=== PATIENT | male | born 1965 | race Two or more races ===

== ENCOUNTER 2021-11-18 13:21 | Outpatient (AMB) | payer MEDICAID, SELFPAY ==
[2021-11-18 13:34] VITALS: BP 114/73; PULSE 65; RESP 18; TEMP 37.6; BMI 27.9
--- NOTE | 2021-11-18 13:34 | URONOTE_ITS ---
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 Accompanied by: Self / Same As Patient Is patient in pain?: No Allergy Allergies No Known Allergies Allergy (Verified 11/18/21 13:35) Home Meds Medication Reconciliation Hydrocodone/Acetaminophen * (NORCO 10/325 *) 1 tab PO Q6HR PRN #0 09/29/12 [History Confirmed 11/18/21] docusate sodium 100 mg capsule (Colace) 100 mg PO BID #0 09/29/12 [History C onfirmed 11/18/21] fenofibrate micronized 134 mg capsule (Fenofibrate) 134 mg PO DAILY #0 09/29/12 [History Confirmed 11/18/21] furosemide 20 mg tablet (Lasix) 20 mg PO QAM #0 09/29/12 [History Confirmed 11/18/21] esomeprazole magnesium 20 mg capsule,delayed release (Nexium) 20 mg PO QDAY cap 09/28/17 [History Confirmed 11/18/21] fluoxetine 20 mg capsule 20 mg PO QDAY 09/28/17 [History Confirmed 11/18/21] nortriptyline 50 mg capsule 50 mg PO QHS 09/28/17 [History Confirmed 11/18/21] potassium citrate 10 mEq (1,080 mg) tablet,extended release 10 meq PO QDAY tab 09/28/17 [History Confirmed 11/18/21] benazepril 5 mg tablet 5 mg PO QDAY 10/03/19 [History Confirmed 11/18/21] carvedilol 25 mg tablet 25 mg PO BID 10/03/19 [History Confirmed 11/18/21] levothyroxine 75 mcg capsule 75 mcg PO QDAY 10/03/19 [History Confirmed 11/18/21] warfarin 3 mg tablet 3 mg PO QDAY tab 10/03/19 [History Confirmed 11/18/21] Nurse Note: Present with Dr Styles during prostate exam. Patient given lab slip to have PSA done in one year. mvp Fall Screening Do you have a fear of falling?: No Have you had a fall in the last 2 months?: No Do you use an assistive device for ambulation?: No Current Vital Signs Height Height Method Weight Weight Measurement Method Body Mass Index Temperature Temperature Source 1.68 m Stated 78.585 kg Standing Scale 27.9 99.7 F Temporal Artery Scan 11/18/21 13:34 11/18/21 13:34 11/18/21 13:34 11/18/21 13:34 11/18/21 13:34 11/18/21 13:34 11/18/21 13:34 Pulse Rate Pulse Source Respiratory Rate Blood Pressure Blood Pressure Source Blood Pressure Location Blood Pressure Position 65 Monitor 18 114/73 Automatic Cuff Left Upper Arm Sitting 11/18/21 13:34 11/18/21 13:34 11/18/21 13:34 11/18/21 13:34 11/18/21 13:34 11/18/21 13:34 11/18/21 13:34 Nursing Documentation Social History Tobacco History Smoking Status: Never smoker Alcohol History Alcohol Intake: Former Office Procedures Uro Level of Care Nursing/Assessment/Reassessment Patient Status: Established Patient Nursing Assessment/Reassessment: Update [facility] data in EMR, Vital Signs and Medication Reconciliation Coordination of Care: Simp Pt/Fam Ed for care and Ref for ancillary service Special Needs: Language special needs Established Patient Point Assignment: 70 Established Patient Point Charge: EP Level 2 (40-75) Procedure IM Injection: No Transrectal Ultrasound: No Urology Clinic Office Visit Office Visit Date of visit:: November 18, 2021 13:21 Allergies & Home Medications: Allergies No Known Allergies Allergy (Verified 10/01/20 08:49) Visit: Reason for visit: [] Office Visit findings: []
--- NOTE | 2021-11-19 06:25 | URONOTEN_ITS ---
RE: ОЛЕГ ALCARAZ : 1965 DATE: 11/18/2021 CHIEF COMPLAINT: 1. BPH with urinary obstruction and LUTS. 2. Hypertension. 3. Coronary artery disease, status post placement of pacemaker. HISTORY OF PRESENT ILLNESS: This is a 56-year-old gentleman. The patient has BPH with urinary obstruction and LUTS. He is on tamsulosin 0.4 mg p.o. daily. Has frequency of urination x2 at night, 3 times during the day. He has no history of hematuria, dysuria, urinary tract infections. Past medical history, family history, review of systems, personal history, please refer to patient history form dated 11/18/2021. It is in HPI, in EMR. PHYSICAL EXAMINATION: General: Condition is satisfactory. Orientation x3. HEENT: Normocephalic, atraumatic. Eyes: No anemia or jaundice. Neck: Supple. Trachea is central. Thyroid is not enlarged. Extremities: Revealed no edema, cyanosis or clubbing. Vital Signs: Stable. They are in HPI, in EMR. Chest: Symmetrical. Heart: Regular rate and rhythm. Abdomen: No masses. Liver, spleen, kidney not palpable. No CVA tenderness. Rectal: Revealed perineum to be normal. External sphincter tone is normal. Prostate is moderately enlarged. No definite induration or asymmetry indicative of prostate cancer. No rectal masses. VARIOUS LABS: BUN is 9, creatinine is 1.2, GFR is 60. PSA on 11/12/2021 is 0.3. IMPRESSION: 1. Benign prostatic hypertrophy with urinary obstruction and lower urinary tract symptoms, status post microwave thermotherapy. 2. Hypertension, needs to be managed by primary care physician. 3. Coronary artery disease, needs to be managed by primary care physician. RECOMMENDATIONS: My recommendation is PSA in 1 year. Reappointment in 1 year. DT: 14:45:01 TT: 19:52:00 Ref: [id number] - TID: [id number]
[2021-11-20 13:25] LABS: Bilirubin,Urine Clinitek Negative (Negative); Blood,Urine Clinitek Negative (Negative); Glucose, Urine Clinitek Negative (Negative); Ketones,Urine Clinitek Negative (Negative); Leukocyte Esterase,Urine Clin Negative (Negative); Nitrite,Urine Clinitek Negative (Negative); PH,Urine Clinitek 7.5 (5.0-7.0); Protein,Urine Clinitek Negative (Neg - Trace)
== END 2021-11-18 14:31 | disposition home or self-care (01) ==
LOC: HODURO 13:21
PROVIDERS: PCP Family Medicine; Visit Provider Urology